=== PATIENT | male | born 1995 | race Caucasian/White ===

== ENCOUNTER 2018-06-01 21:09 | Emergency (ER) | payer MEDICAID ==
[~2018-06-01] VITALS: Ht 188 cm; Wt 68.0 kg
[2018-06-01 21:18] VITALS: BP 131/80
[2018-06-02] MEDS ORDERED: TETANUS-DIPTH-ACEL PERTUSSIS 0.5ML SYRG IM ONE (00:45)
== END 2018-06-02 01:55 | disposition home or self-care (01) ==
LOC: ER 21:11
DX: S60.451A Superficial foreign body of left index finger, initial encounter (principal); S60.453A Superficial foreign body of left middle finger, initial encounter; F17.210 Nicotine dependence, cigarettes, uncomplicated; W29.4XXA Contact with nail gun, initial encounter; Y93.89 Activity, other specified; Y99.8 Other external cause status; Y92.89 Other specified places as the place of occurrence of the external cause
CPT/HCPCS: 73130; 90471; 90715

== ENCOUNTER 2019-12-14 22:48 | Emergency (ER) | payer MEDICAID ==
[~2019-12-14] VITALS: Ht 188 cm; Wt 77.1 kg
[2019-12-15 00:16] LABS: Urine Bacteria NONE SEEN /hpf (None Seen); Urine Blood Negative /uL (Negative); Urine Mucus FEW (None Seen); Urine Specific Gravity 1.014 (1.001-1.035); Urine WBC 3 /hpf (0 - 3)
[2019-12-15 00:44] LABS: Basophils # (auto) 0 10 ^3/uL (0-0.2); Basophils % (auto) 0.2 % (0.0-2.0); Eosinophils # (auto) 0 10 ^3/uL (0-0.8); Eosinophils % (auto) 0.2 % (0.0-7.0); Hematocrit 49.7 % (41.0-53.0); Hemoglobin 16.7 g/dL (13.5-17.5); Lymphocytes # (auto) 1.4 10 ^3/uL (0.4-5.4); Lymphocytes % (auto) 12.5 % (10.0-50.0); Mean Corpuscular Hemoglobin 31.8 pg (28.0-32.0); Mean Corpuscular Hgb Conc. 33.6 g/dL (32.0-36.0); Mean Corpuscular Volume 94.5 fL (80.0-100.0); Monocytes # (auto) 0.7 10 ^3/uL (0-1.3); Neutrophils # (auto) 8.9 10 ^3/uL (1.6-8.6); Neutrophils % (auto) 81.1 % (37.0-80.0); Platelet Count (auto) 201 10^3/uL (140-450); Red Blood Cells 5.26 10^6/uL (4.5-5.90); Red Cell Distribution Width 13.2 % (11.8-14.3)
[2019-12-15 01:04] LABS: Albumin 4.2 g/dL (3.4-5.0); Calcium 9.7 mg/dL (8.5-10.1)
[2019-12-15 01:07] LABS: BUN/Creatinine Ratio 17.1
[2019-12-15 01:10] LABS: Bilirubin, Total 0.5 mg/dL (0.2-1.0); Total Protein 7.7 g/dL (6.4-8.2)
[2019-12-15] MEDS ORDERED: LORazepam 2MG/ML-1ML VIAL IV ONE (08:00)
[2019-12-15] MEDS ORDERED: SODIUM CHLORIDE 0.9% 1,000 ML IV ONE (08:00)
[2019-12-15 08:29] VITALS: BP 108/69
== END 2019-12-15 09:55 | disposition home or self-care (01) ==
LOC: ER 22:51
DX: G40.909 Epilepsy, unspecified, not intractable, without status epilepticus (principal); E86.0 Dehydration; F12.10 Cannabis abuse, uncomplicated; F17.210 Nicotine dependence, cigarettes, uncomplicated
CPT/HCPCS: 36415; 70450; 71101; 80053; 81001; 85025; 96361; 96374; 99285; J2060; J7030